=== PATIENT | male | born 2005 | race Two or more races ===

== ENCOUNTER 2024-11-16 12:29 | Emergency (ER) | payer MEDICAID, OTHER ==
[~2024-11-16] VITALS: Ht 154.9 cm; Wt 100.4 kg
[2024-11-16 14:38] VITALS: BP 132/69; PULSE 74; RESP 17; TEMP 97.7; O2SAT 97
[2024-11-16] MEDS ORDERED: NAPR-957 PO (15:34)
[2024-11-16] MEDS ORDERED: CEFD300C2 PO (15:34)
--- NOTE | 2024-11-16 15:36 | ED.PDOC ---
History of Present Illness(SKN HPI Comments 19-year-old male presented to the urgent care complaining of headache with a puncture wound to the posterior scalp which is mildly bleeding small hematoma noted and object fell on his head next Chief Complaint: Head Injury Time Seen by MD: 13:38 Primary Care Provider: NONE History of Present Illness: Nurses Notes, Medications, Allergies Allergies: Coded Allergies: NO KNOWN ALLERGIES (Unverified , 11/16/24) Home Meds Active Scripts Naproxen (Naproxen) 375 Mg Tab, 1 TAB PO BID for 10 Days, #20 TAB 5 Refills Prov:IGOR SARAH MD 11/16/24 Cefdinir (Cefdinir) 300 Mg Cap, 1 CAP PO BID for 5 Days, #10 CAP Prov:IGOR SARAH MD 11/16/24 Information Source: Patient Mode of Arrival: Ambulatory Severity: Mild Timing: Hours Duration: Since onset Location: Head Mechanism: Blunt Trauma Object: Unknown Wound Type: Laceration, Puncture Tetanus: UTD Associated Signs and Symptoms: Headache Past Medical History PAST MEDICAL HISTORY: Denies Surgical History: Denies all surgeries Family History Family History: Reviewed,noncontributory to illness, No family hx of Cancer, No family hx of DM, No family hx of Heart jethro, No family hx of HTN, No family hx ofKidney jethro, No family hx of Liver jethro, No family hx of Lung jtehro, No family hx of Stroke Social History Smoker: Non-Smoker Alcohol: Denies ETOH Use Drugs: Denies Drug Use Lives In: Home Constitutional: denies: chills, diaphoresis, fatigue, fever, malaise, sweats, weakness, others EENTM: denies: blurred vision, double vision, ear bleeding, ear discharge, ear drainage, ear pain, ear ringing, eye pain, eye redness, hearing loss, mouth shalom n, mouth swelling, nasal discharge, nose bleeding, nose congestion, nose pain, photophobia, tearing, throat pain, throat swelling, voice changes, others Respiratory: denies: cough, hemoptysis, orthopnea, SOB at rest, shortness of breath, SOB with excertion, stridor, wheezing, others Cardiovascular: denies: chest pain, dizzy spells, diaphoresis, Dyspnea on exertion, edema, irregular heart beat, left arm pain, lightheadedness, palpitations, PND, syncope, others Gastrointestinal: denies: abdomen distended, abdominal pain, blood streaked bowels, constipated, diarrhea, dysphagia, difficulty swallowing, hematemesis, melena, nausea, poor appetite, poor fluid intake, rectal bleeding, rectal pain, vomiting, others Genitourinary: denies: burning, dysuria, flank pain, frequency, hematuria, incontinence, penile discharge, penile sore, pain, testicle pain, testicle swelling, urgency, others Neurological: denies: dizziness, fainting, headache, left sided numbness, left sided weakness, numbness, paresthesia, pre-existing deficit, right sided numbness, right sided weakness, seizure, speech problems, tingling, tremors, weakness, others Musculoskeletal: denies: back pain, gout, joint pain, joint swelling, muscle pain, muscle stiffness, neck pain, others Integumetry: reports: laceration, wounds; denies: bruises, change in color, change in hair/nails, dryness, lesions, lumps, rash, others Allergic/Immunocompromised: denies: Difficulty Healing, Frequent Infections, Hives, Itching, others Hematologic/Lymphatic: denies: anemia, blood clots, easy bleeding, easy bruising, swollen glands, others Endocrine: denies: excessive hunger, excessive sweating, excessive thirst, excessive urination, flushing, intolerance to cold, intolerance to heat, unexplained weight gain, unexplained weight loss, others Psychiatric: denies: anxiety, bipolar disorder, depression, hopeless, panic disorder, schizophrenia, sleepless, suicidal, others All Other Systems: Reviewed and Negative Physical Exam General Appearance: No Apparent Distress HEENT: Head, Normal ENT Inspection, PERRL/EOMI, Other (Occipital scalp which is bleeding and small hematoma) Neck: Full Range of Motion, Non-Tender, Normal, Normal Inspection Respiratory: Chest Non-Tender, Lungs Clear, No Accessory Muscle Use, No Respiratory Distress, Normal Breath Sounds Cardiovascular: No Edema, No JVD, No Murmur, No Gallop, Normal Peripheral Pulses, Regular Rate/Rhythm Breast Exam: Deferred Gastrointestinal: No Organomegaly, Non Tender, No Pulsatile Mass, Normal Bowel Sounds, Soft Genitalia: Deferred Pelvic: Deferred Rectal: Deferred Extremities: No calf tenderness, Normal capillary refill, Normal inspection, Normal range of motion, Non-tender, No pedal edema Neurologic: Alert, 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 Was a procedure done?: No Differential Diagnosis (INTG) Differential Diagnosis: Abrasion, Contusion, Hematoma, Puncture Wound Differential Diagnosis: N/A Differential Diagnosis: Lacerations, Hematoma Abscess: N/A Differential Diagnosis: Laceration, Puncture Wound X-Ray, Labs, Meds, VS Vital Signs Date Time Temp Pulse Resp B/P (MAP) Pulse Ox O2 Delivery O2 Flow Rate FiO2 11/16/24 14:38 97.7 74 17 132/69 (90) 97 97.7 11/16/24 14:38 74 17 97 Room Air 11/16/24 12:42 97.7 75 16 123/69 (87) 96 97.7 X-Ray, Labs, Meds, VS Comment Emergency department eventful patient came in because of headache and small puncture laceration to the occipital scalp and object felt on fell on him The CT head is normal Patient will be discharged home to follow up with his PCP you will need to keep the puncture clear and dry and apply Neosporin ointment Time of 1ST Reevaluation: 13:40 Reevaluation 1ST: Unchanged Patient Education/Counseling: Diagnosis, Treatment, Prognosis, Need For Follow Up Family Education/Counseling: Diagnosis, Treatment, Prognosis, Need For Follow Up, No Family Present Departure 1 Departure Time of Disposition: 16:37 Impression: Primary Impression: Head trauma Qualified Codes: S09.90XA - Unspecified injury of head, initial encounter Additional Impression: Puncture wound of scalp Qualified Codes: S01.03XA - Puncture wound without foreign body of scalp, initial encounter Disposition: HOME / SELF CARE / HOMELESS Condition: Fair e-Prescriptions Naproxen (Naproxen) 375 Mg Tab 1 TAB PO BID for 10 Days, #20 TAB 5 Refills Prov: IGOR SARAH MD 11/16/24 Cefdinir (Cefdinir) 300 Mg Cap 1 CAP PO BID for 5 Days, #10 CAP Prov: IGOR SARAH MD 11/16/24 Discharged With: Self Critical Care Note Critical Care Time?: No Stability Stability form required: No Heart Score Heart Score: Heart Score Response (Comments) Value History N/A 0 EKG N/A 0 Age <45 0 Risk Factors No known risk factors 0 Troponin N/A 0 Total 0 IGOR SARAH MD Nov 16, 2024 15:36
--- NOTE | 2024-11-16 16:16 | DVH ---
EXAM: CT HEAD WITHOUT CONTRAST INDICATION: Trauma with a puncture wound to the scalp TECHNIQUE: CT of the head without intravenous contrast. Radiation Dose Information: CT Dose: CTDI volume is 60.94 mGy. Dose-length product is 976.68 mGy*cm The dose indicators for CT are the volume Computed Tomography (CT) Dose Index (CTDIvol) and the Dose Length Product (DLP), and are measured in units of mGy and mGy-cm, respectively. These indicators are not patient dose, but values generated from the CT scanner acquisition factors. The report includes radiation exposure data for exposures received during this examination. COMPARISON: None FINDINGS: There is no evidence of acute intracranial hemorrhage, extra-axial collection, mass effect, midline s hift, herniation or hydrocephalus. The ventricles, sulci and cisterns are age appropriate. The barron-white differentiation is intact. Patchy periventricular and subcortical white matter hypoattenuation is nonspecific but may be related to small vessel ischemic disease. The visualized paranasal sinuses and mastoid air cells are clear. The surrounding soft tissues and osseous structures are unremarkable. IMPRESSION: 1. No acute intracranial abnormality. HS:Y
== END 2024-11-16 16:40 | disposition home or self-care (01) ==
LOC: ER 12:29
DX: S01.03XA Puncture wound without foreign body of scalp, initial encounter (principal); Z79.899 Other long term (current) drug therapy; W20.8XXA Other cause of strike by thrown, projected or falling object, initial encounter; Y93.89 Activity, other specified; Y92.89 Other specified places as the place of occurrence of the external cause; Y99.8 Other external cause status
CPT/HCPCS: 70450

== ENCOUNTER 2025-02-22 21:04 | Emergency (ER) | payer SELFPAY ==
[~2025-02-22] VITALS: Ht 165.1 cm; Wt 94.4 kg
[~2025-02-22 21:04] MED LIST: CEFD300C2 PO; NAPR-957 PO
[2025-02-22 21:14] VITALS: TEMP 99
--- NOTE | 2025-02-22 23:47 | ED.PDOC ---
History of Present Illness HPI Comments 19-year-old male who presents with chief complaint of mid upper back and right upper quadrant abdominal pain. Patient on history of constant, burning pain following initial unprovoked and atraumatic onset. No endorsement any significant past medical, surgical, or family history alongside any pertinent events. Denies having any numbness, tingling, chest pain, shortness of breath, or further associated symptoms. REVIEW OF SYSTEMS: General: No fever, no chills, HEENT: No neck pain, no blurred vision Cardiac: No chest pain. No palpitations. Lungs: No shortness of breath, GI: abdominal pain, no vomiting Musculoskeletal: No joint pain , back pain Skin: No rash, no wound Neuro: No headache, no dizziness, no syncope PHYSICAL EXAM: General: Awake, alert and oriented. No acute distress. Skin: Skin in warm, dry and intact without rashes or lesions. HEENT: The head is normocephalic and atraumatic. Conjunctivae are clear without exudates or hemorrhage. Sclera is non-icteric. Neck: Normal range of motion. No JVD. Cardiac: Regular rate Respiratory: No signs of respiratory distress. No Stridor. Breath sounds clear bilaterally Musculoskeletal: No upper back tenderness. Extremities: Upper and lower extremities are atraumatic in appearance without deformity. Neurological: The patient is awake, alert and oriented to person, place, and time with normal speech. Speech is clear. There is no facial asymmetry. Psychiatric: Appropriate mood and affect. Good judgement and insight. Chief Complaint: Body Pain Time Seen by MD: 22:44 Primary Care Provider: NONE Allergies: Coded Allergies: NO KNOWN ALLERGIES (Unverified , 11/16/24) Home Meds Active Scripts Ibuprofen (Ibuprofen) 600 Mg Tab, 1 TAB PO TID for 5 Days, #15 TAB Prov:AYESHA HILL MD 02/23/25 Acetaminophen (Acetaminophen) 500 Mg Tab, 500 MG PO TIDPRN PRN for 5 Days, #15 TAB Prov:AYESHA HILL MD 02/23/25 Naproxen (Naproxen) 375 Mg Tab, 1 TAB PO BID for 10 Days, #20 TAB 5 Refills Prov:IGOR SARAH MD 11/16/24 Cefdinir (Cefdinir) 300 Mg Cap, 1 CAP PO BID for 5 Days, #10 CAP Prov:IGOR SARAH MD 11/16/24 Information Source: Patient Mode of Arrival: Ambulatory Past Medical History PAST MEDICAL HISTORY: Denies Surgical History: Denies all surgeries Family History Family History: Reviewed,noncontributory to illness, No family hx of Cancer, No family hx of DM, No family hx of Heart jethro, No family hx of HTN, No family hx ofKidney jethro, No family hx of Liver jethro, No family hx of Lung jethro, No family hx of Stroke Social History Smoker: Non-Smoker Alcohol: Denies ETOH Use Drugs: Denies Drug Use Lives In: Home Was a procedure done? Was a procedure done?: No Differential Dx Considerations may include: Differential diagnoses considered include but are not limited to spinal fracture, spinal injury, cardiac contusion, soft tissue injury, vascular injury, meningitis, other X-Ray, Labs, Meds, VS Vital Signs Date Time Temp Pulse Resp B/P (MAP) Pulse Ox O2 Delivery O2 Flow Rate FiO2 02/23/25 04:36 60 18 140/97 (111) 98 02/22/25 21:14 99.0 65 14 152/76 98 99.0 [place] [id number] Ph: [phone] DIAGNOSTIC IMAGING Diagnostic Imaging Report : [id number] Signed PATIENT: HONEY OSBORNE ACCT: [id number] UNIT: [id number] : 2005 LOC: ER ROOM / BED: / AGE / SEX: 19 / M ADM STATUS: REG ER SERVICE [id number] ORDERING PHYSICIAN: AYESHA HILL MD PROCEDURE(s): CXR2 - CHEST TWO VIEWS ROUTINE REASON: Upper back pain worse with inspiration ORDER NUMBER(s): [id number], ACCESSION NUMBER(s): [id number] CHEST RADIOGRAPH Indication: Upper back pain worse with inspiration Technique: 2 views Comparison: None FINDINGS: Lines and Tubes: None Lungs/Pleura: No focal consolidation, pleural effusion or pneumothorax. Cardiomediastinum: Unremarkable. Other: No acute osseous abnormality. IMPRESSION: 1. Normal chest radiographs. ATED BY: TIMMY MORENO MD DICTATED DATE/TIME: 02/23/25313 SIGNED BY: TIMMY MORENO MD SIGNED DATE/TIME: 02/23/25313 CC: Time of 1ST Reevaluation: 23:14 Reevaluation 1ST: Unchanged Patient Education/Counseling: Need For Follow Up Family Education/Counseling: No Family Present SEPSIS Sepsis Screen Date sepsis recognized/suspect: Feb 22, 2025 Time Sepsis recognized/suspect: 2115 Recent Procedure: No On Antibiotic Therapy: No Respiratory Rate >20: No Heart Rate >90: No Temp<36 C (96.8 F) or >38.3 C: No SBP <90 or MAP <65 mmHG: No New Acute Mental Status Change: No Is the patient on CPAP, BIPAP,: No Physician Orders Chest Two Views Routine (02/23/25 02:56) Vital Signs Date Time Temp Pulse Resp B/P (MAP) Pulse Ox O2 Delivery O2 Flow Rate FiO2 02/23/25 04:36 60 18 140/97 (111) 98 02/22/25 21:14 99.0 65 14 152/76 98 99.0 Departure 1 Departure Time of Disposition: 04:13 Impression: Primary Impression: Upper back pain Disposition: 01 HOME / SELF CARE / HOMELESS Condition: Stable Additional Instructions: ED DISCHARGE INSTRUCTIONS Instructions: Please read all instructions provided in this packet carefully. Although you have been discharged from the Emergency Department, this does not mean that you have a "clean bill of health". No definitive diagnosis for your symptoms has been made today. It is possible that you are in the process of developing a serious illness. This is why you must return to the ED without fail if any new or worsening symptoms (especially if your symptoms include chest pain, trouble breathing, abdominal pain, fever, headache, confusion, trouble seeing, or trouble walking) It is also very important that you see a primary care provider (PCP) within the next 3-5 days to follow up. If you are unable to get an appointment, return to the ED for re-evaluation. Back Pain: Care Instructions Table of Contents Overview How can you care for yourself at home? When should you call for help? Credits Overview In most cases, there isn't a clear cause for back pain. It may be related to problems with muscles and ligaments of the back. It may also be related to problems with the nerves, discs, or bones of the back. Moving, lifting, standing, sitting, or sleeping in an awkward way can strain the back. Arthritis is another cause of back pain. Although it may hurt a lot, back pain usually improves on its own within several weeks. Most people recover in 12 weeks or less. Using self-care, such as ice or heat and light activity (like walking) may help you feel better sooner. Follow-up care is a vazquez part of your treatment and safety. Be sure to make and go to all appointments, and call your doctor if you are having problems. It's also a good idea to know your test results and keep a list of the medicines you take. How can you care for yourself at home? Sit or lie in positions that are most comfortable and reduce your pain. Try one of these positions when you lie down: Lie on your back with your knees bent and supported by pillows. Lie on the floor with your legs on the seat of a sofa or chair. Lie on your side with your knees and hips bent and a pillow between your legs. Lie on your stomach if it does not make pain worse. Do not sit up in bed, and avoid soft couches and twisted positions. Bed rest can help relieve pain at first, but it delays healing. Avoid bed rest after the fi rst day of back pain. Change positions every 30 minutes. If you must sit for long periods of time, take breaks from sitting. Get up and walk around, or lie in a comfortable position. Try using a heating pad on a low or medium setting for 15 to 20 minutes every 2 or 3 hours. Try a warm shower in place of one session with the heating pad. You can also try an ice pack for 10 to 15 minutes every 2 to 3 hours. Put a thin cloth between the ice pack and your skin. Take pain medicines exactly as directed. If the doctor gave you a prescription medicine for pain, take it as prescribed. If you are not taking a prescription pain medicine, ask your doctor if you can take an [id number] medicine. Take short walks several times a day. You can start with 5 to 10 minutes, 3 or 4 times a day, and work up to longer walks. Walk on level surfaces and avoid hills and stairs until your back is better. Return to work and other activities as soon as you can. Continued rest without activity is usually not good for your back. To prevent future back pain, do exercises to stretch and strengthen your back and stomach. Learn how to use good posture, safe lifting techniques, and proper body mechanics. When should you call for help? Call your doctor now or seek immediate medical care if: You have new or worsening numbness in your legs. You have new or worsening weakness in your legs. (This could make it hard to stand up.) You lose control of your bladder or bowels. Watch closely for changes in your health, and be sure to contact your doctor if: You have a fever, lose weight, or don't feel well. You do not get better as expected. Credits for Back Pain: Care Instructions Current as of: December 25, 2022 Author: [employer] Clinical Review Board All [employer] education is reviewed by a team that includes physicians, nurses, advanced practitioners, registered dieticians, and other healthcare profe ssionals. e-Prescriptions Ibuprofen (Ibuprofen) 600 Mg Tab 1 TAB PO TID for 5 Days, #15 TAB Prov: AYESHA HILL MD 02/23/25 Acetaminophen (Acetaminophen) 500 Mg Tab 500 MG PO TIDPRN PRN for 5 Days, #15 TAB Prov: AYESHA HILL MD 02/23/25 Comments MDM: Patient well-appearing, nontoxic. [place] stable for discharge home. Advised prompt follow-up with PCP, return to the ED with any new, worsening or concernin g symptoms. Extensive evaluation was performed in attempt to identify or rule out: (See differential diagnosis section) The following tests were ordered, and results were reviewed by me and discussed with patient: (See diagnostic results section) The following test were independently interpreted by me: N/A I reviewed and agreed with the following test results read by other providers: Chest x-ray Decision regarding hospitalization or escalation of hospital level of care: Risks and benefits of admission for further treatment of patient's condition was considered however due to patient's stable condition patient will be discharged to follow up closely or return to care for worsening of condition or inability to follow up. Critical Care Note Critical Care Time?: No Stability Stability form required: No Heart Score Heart Score: Heart Score Response (Comments) Value History N/A 0 EKG N/A 0 Age N/A 0 Risk Factors N/A 0 Troponin N/A 0 Total 0 I personally scribed for AYESHA HILL MD ([email or web address]) on 02/22/25 at 23:47. Electronically submitted by Ventura Martini ([email or web address]). I personally scribed for AYESHA HILL MD ([email or web address]) on 02/23/25 at 06:04. Electronically submitted by Ventura Martini ([email or web address]). AYESHA HILL MD Feb 22, 2025 23:47
--- NOTE | 2025-02-23 03:16 | DVH ---
CHEST RADIOGRAPH Indication: Upper back pain worse with inspiration Technique: 2 views Comparison: None FINDINGS: Lines and Tubes: None Lungs/Pleura: No focal consolidation, pleural effusion or pneumothorax. Cardiomediastinum: Unremarkable. Other: No acute osseous abnormality. IMPRESSION: 1. Normal chest radiographs.
[2025-02-23] MEDS ORDERED: IBUP-1454 PO (04:14)
[2025-02-23] MEDS ORDERED: ACET500T58 PO (04:14)
[2025-02-23] MEDS: KETOROLAC TROMETH 30 MG/ML 1ML VIAL IM ONE (04:35)
[2025-02-23 04:36] VITALS: BP 140/97; PULSE 60; RESP 18; O2SAT 98
== END 2025-02-23 04:37 | disposition home or self-care (01) ==
LOC: ER 21:09
DX: M54.9 Dorsalgia, unspecified (principal); R10.11 Right upper quadrant pain
CPT/HCPCS: 71046; 96372; 99283; J1885